=== PATIENT | male | born 1950 | race Caucasian/White ===

== ENCOUNTER → 2016-07-23 | Outpatient (CLI) | payer MEDICARE, OTHER | LOC: RAD 10:35 | PROVIDERS: ATTEND Internal Medicine Medical Oncology | DX: C16.9 Malignant neoplasm of stomach, unspecified (principal) | CPT/HCPCS: 78815; A9552 ==

== ENCOUNTER 2016-08-23 10:23 | Outpatient (CLI) | payer MEDICARE, OTHER ==
[~2016-08-23 10:23] MED LIST: ACETAMINOPHEN 325 MG TABLET PO PRN; DIPHENHYDRAMINE HCL 25 MG CAPSULE PO PRN; FUROSEMIDE INJ/PF 20 MG/2 ML SDV IV PRN; NORMAL SALINE 1000 ML 1,000 ML IV PRN
[2016-08-23 11:18] LABS: HEMATOCRIT 23.1 % (37.9-51.0); MEAN CORPUSCULAR HGB CONC 33.4 g/dL (32.0-36.0); RED BLOOD COUNT 2.09 10^6/uL (4.35-5.55); RED CELL DISTRIBUTION WIDTH 22.1 % (11.5-14.0); WHITE BLOOD COUNT 3.3 10^3/uL (4.0-10.5)
[2016-08-23 12:02] LABS: HEMOGLOBIN 7.7 g/dL (13.5-17.0); MEAN CORPUSCULAR VOLUME 111 fl (80-97)
[2016-08-23 20:45] VITALS: BP 129/55
[2016-08-23 22:00] LABS: HEMATOCRIT 26.2 % (37.9-51.0); HEMOGLOBIN 9.1 g/dL (13.5-17.0); HGB HCT DIFFERENCE 1.1; MEAN CORPUSCULAR HEMOGLOBIN 35.8 pg (27.0-33.4); MEAN CORPUSCULAR HGB CONC 34.6 g/dL (32.0-36.0); RED BLOOD COUNT 2.54 10^6/uL (4.35-5.55); RED CELL DISTRIBUTION WIDTH 24.9 % (11.5-14.0); WHITE BLOOD COUNT 3.3 10^3/uL (4.0-10.5)
[2016-08-23 22:08] LABS: MEAN CORPUSCULAR VOLUME 103 fl (80-97)
[2016-08-24 20:02] LABS: PATH REVIEW PATHOLOGIST REVIEWED
== END 2016-08-23 22:00 | disposition home or self-care (01) ==
LOC: II 10:23 → 2N 10:29 → 2S 10:32 → II 22:00
PROVIDERS: ATTEND Internal Medicine Medical Oncology
PROC: 30233N1 Transfusion of Nonautologous Red Blood Cells into Peripheral Vein, Percutaneous Approach (ICD-10-PCS; principal; 2016-08-23)
DX: D69.3 Immune thrombocytopenic purpura (principal)
CPT/HCPCS: 86900; 86901; 36415; 36430; 86850; 85027; 86920; P9016; A9270 ×2

== ENCOUNTER 2016-09-23 10:19 | Day surgery (SDC) | payer MEDICARE, OTHER ==
[2016-09-23 10:44] LABS: HEMOGLOBIN 8.4 g/dL (13.5-17.0); HGB HCT DIFFERENCE -0.8; MEAN CORPUSCULAR HEMOGLOBIN 31.7 pg (27.0-33.4); MEAN CORPUSCULAR HGB CONC 32.5 g/dL (32.0-36.0); MEAN CORPUSCULAR VOLUME 98 fl (80-97); RED BLOOD COUNT 2.66 10^6/uL (4.35-5.55); RED CELL DISTRIBUTION WIDTH 23.6 % (11.5-14.0); WHITE BLOOD COUNT 5.7 10^3/uL (4.0-10.5)
[2016-09-23 11:00] LABS: BLOOD UREA NITROGEN 23 mg/dL (7-20); CREATININE RESULT 0.73 mg/dL (0.52-1.25)
[2016-09-23] MEDS ORDERED: MIDAZOLAM 2 MG/2 ML INJ ONE (12:21)
[2016-09-23] MEDS ORDERED: FENTANYL CITRATE INJ/PF 100 MCG/2 ML AMPUL ONE (12:22)
--- NOTE | 2016-09-23 14:51 | RADIOLOGY REPORT (SQ) ---
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 TECHNIQUE: CT guided biopsy of the posterior right iliac crest bone marrow aspirate performed with c onscious sedation. CT Fluoroscopy Time: 1.[address] scanners at this facility use dose modulation, iterative reconstruction, and/or weight based d osing when appropriate to reduce radiation dose to as low as reasonably achievable (ALARA). [facility]: Dose Right [facility]: CareDose [facility]: Dose Right [facility]: Teradose 4D [facility]: [employer] RADIATION DOSE: 31 mGy. FINDINGS: The procedure was discussed with the patient and the patient agreed to the procedure. Prio r to the procedure, a time out was performed to verify the patient's identity and planned procedure. IV sedation was administered and physician direction by the registered nurse using 2 milligrams of Ve rsed and 100 micrograms of fentanyl. Physiologic monitoring was provided before, during, and after se dation. The total sedation time was 42 minutes. Documentation face to face time, the performing proceduralist, spent monitoring the patient: [address] scanning was performed to localize the percutaneous site for the biopsy approach. After sterile skin prep and local lidocaine for skin and deep tissue anesthesia, a 14 gauge bone biop sy needle was used to obtain 1 aspirate of bone marrow, and 2 cores of medullary space bone. Specime ns were given to Noa from the oncologist's office. Pathology is pending. There were no immediate complications. IMPRESSION: CT GUIDED BIOPSY OF THE RIGHT POSTERIOR ILIAC CREST BONE MARROW PERFORMED WITHOUT IMMEDI ATE COMPLICATION. PATHOLOGY PENDING. COMMENT: Quality ID 145: Final reports for procedures using fluoroscopy that document radiation exp osure indices, or exposure time and number of fluorographic images (if radiation exposure indices are not available) Patient medication list reviewed: Yes- Quality ID# [id number]:Eligible professional attests to documenting i n the medical record they obtained, updated, or reviewed the patient's current medications.. TECHNICAL DOCUMENTATION: JOB ID: [id number] Quality ID# [id number]: Final reports with documentation of one or more dose reduction techniques (e.g., Aut omated exposure control, adjustment of the mA and/or kV according to patient size, use of iterative r econstruction technique) 2010 [employer]- All Rights Reserved
--- NOTE | 2016-09-23 14:51 | RADIOLOGY REPORT (SQ) ---
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 TECHNIQUE: CT guided biopsy of the posterior right iliac crest bone marrow aspirate performed with c onscious sedation. CT Fluoroscopy Time: 1.[address] scanners at this facility use dose modulation, iterative reconstruction, and/or weight based d osing when appropriate to reduce radiation dose to as low as reasonably achievable (ALARA). [facility]: Dose Right [facility]: CareDose [facility]: Dose Right [facility]: Teradose 4D [facility]: [employer] RADIATION DOSE: 31 mGy. FINDINGS: The procedure was discussed with the patient and the patient agreed to the procedure. Prio r to the procedure, a time out was performed to verify the patient's identity and planned procedure. IV sedation was administered and physician direction by the registered nurse using 2 milligrams of Ve rsed and 100 micrograms of fentanyl. Physiologic monitoring was provided before, during, and after se dation. The total sedation time was 42 minutes. Documentation face to face time, the performing proceduralist, spent monitoring the patient: [address] scanning was performed to localize the percutaneous site for the biopsy approach. After sterile skin prep and local lidocaine for skin and deep tissue anesthesia, a 14 gauge bone biop sy needle was used to obtain 1 aspirate of bone marrow, and 2 cores of medullary space bone. Specime ns were given to Noa from the oncologist's office. Pathology is pending. There were no immediate complications. IMPRESSION: CT GUIDED BIOPSY OF THE RIGHT POSTERIOR ILIAC CREST BONE MARROW PERFORMED WITHOUT IMMEDI ATE COMPLICATION. PATHOLOGY PENDING. COMMENT: Quality ID 145: Final reports for procedures using fluoroscopy that document radiation exp osure indices, or exposure time and number of fluorographic images (if radiation exposure indices are not available) Patient medication list reviewed: Yes- Quality ID# [id number]:Eligible professional attests to documenting i n the medical record they obtained, updated, or reviewed the patient's current medications.. TECHNICAL DOCUMENTATION: JOB ID: [id number] Quality ID# [id number]: Final reports with documentation of one or more dose reduction techniques (e.g., Aut omated exposure control, adjustment of the mA and/or kV according to patient size, use of iterative r econstruction technique) [address] [employer]- All Rights Reserved
[2016-09-23 15:14] VITALS: BP 115/48
== END 2016-09-23 15:05 | disposition home or self-care (01) ==
LOC: RAD 10:19
PROVIDERS: ATTEND Internal Medicine Medical Oncology
PROC: 0QB23ZX Excision of Right Pelvic Bone, Percutaneous Approach, Diagnostic (ICD-10-PCS; principal; 2016-09-23)
DX: D69.3 Immune thrombocytopenic purpura (principal); D64.9 Anemia, unspecified
CPT/HCPCS: 36415; 84520; 82565; 85027; 85610; 77012; 20225; J2250; J3010

== ENCOUNTER 2016-10-18 10:33 | Outpatient (CLI) | payer MEDICARE, OTHER ==
[~2016-10-18 10:33] MED LIST changes: -NORMAL SALINE 1000 ML 1,000 ML IV PRN
[2016-10-18 11:06] LABS: HEMATOCRIT 23.6 % (37.9-51.0); HGB HCT DIFFERENCE -0.8; MEAN CORPUSCULAR HEMOGLOBIN 30.6 pg (27.0-33.4); MEAN CORPUSCULAR HGB CONC 32.2 g/dL (32.0-36.0); MEAN CORPUSCULAR VOLUME 95 fl (80-97); RED BLOOD COUNT 2.49 10^6/uL (4.35-5.55); RED CELL DISTRIBUTION WIDTH 20.2 % (11.5-14.0)
[2016-10-18 11:49] LABS: HEMOGLOBIN 7.6 g/dL (13.5-17.0); WHITE BLOOD COUNT 2.5 10^3/uL (4.0-10.5)
--- NOTE | 2016-10-18 18:35 | XCELERA REPORT ---
[address] [address] Upper Extremity Venous Evaluation Name: FABRICIO SCHMIDT Age: 66 yrs Gender: Male : 1950 Patient Status: Outpatient Patient Location: 2N\S\206\S\A Study Date: 10/18/2016 01:43 PM Procedure: Unilateral duplex scan of the right upper extremity veins was performed, including responses to compression and other maneuvers. Reason For Study: Swelling of right chest/port Ordering Physician: ANABEL GASPAR Performed By: Candy Avalos Right Side Venous Evaluation Port catheter present. Normal vessel filling wall to wall, compression and augmentation as well as Colour flow down to the forearm veins. Interpretation Summary Normal compression, patency, spontaneous and phasic flow of the right upper extremity veins. : ANABEL GASPAR > You Mathis
[2016-10-18 22:33] VITALS: BP 118/57
[2016-10-18 23:04] LABS: HEMOGLOBIN 9.2 g/dL (13.5-17.0); HGB HCT DIFFERENCE -0.4; MEAN CORPUSCULAR HEMOGLOBIN 30.8 pg (27.0-33.4); MEAN CORPUSCULAR HGB CONC 32.7 g/dL (32.0-36.0); MEAN CORPUSCULAR VOLUME 94 fl (80-97); RED BLOOD COUNT 2.97 10^6/uL (4.35-5.55); RED CELL DISTRIBUTION WIDTH 18.3 % (11.5-14.0); WHITE BLOOD COUNT 2.2 10^3/uL (4.0-10.5)
[2016-10-20 12:53] LABS: PATH REVIEW PATHOLOGIST REVIEWED
== END 2016-10-18 23:14 | disposition home or self-care (01) ==
LOC: II 10:33 → 2N 10:37 → II 23:14
PROVIDERS: ATTEND Internal Medicine Medical Oncology
PROC: 30233N1 Transfusion of Nonautologous Red Blood Cells into Peripheral Vein, Percutaneous Approach (ICD-10-PCS; principal; 2016-10-18)
PROC: 30233R1 Transfusion of Nonautologous Platelets into Peripheral Vein, Percutaneous Approach (ICD-10-PCS; 2016-10-18)
DX: C16.9 Malignant neoplasm of stomach, unspecified (principal)
CPT/HCPCS: 96374; 86900; 86901; 36415; 36430; 86850; 85027; 86920; 93971 ×2; P9016; P9035; J1940

== ENCOUNTER 2016-11-17 09:41 | Outpatient (CLI) | payer MEDICARE, OTHER ==
[2016-11-17] MEDS ORDERED: NORMAL SALINE 250 ML IV PRN (10:22)
[2016-11-17 12:09] LABS: HEMOGLOBIN 8.3 g/dL (13.5-17.0); HGB HCT DIFFERENCE -0.1; MEAN CORPUSCULAR HEMOGLOBIN 30.5 pg (27.0-33.4); MEAN CORPUSCULAR HGB CONC 33.4 g/dL (32.0-36.0); MEAN CORPUSCULAR VOLUME 91 fl (80-97); RED BLOOD COUNT 2.74 10^6/uL (4.35-5.55); RED CELL DISTRIBUTION WIDTH 16.7 % (11.5-14.0)
[2016-11-18 00:06] VITALS: BP 107/53
[2016-11-18 00:31] LABS: HEMATOCRIT 26.3 % (37.9-51.0); HGB HCT DIFFERENCE 0.7; MEAN CORPUSCULAR HEMOGLOBIN 30.7 pg (27.0-33.4); MEAN CORPUSCULAR HGB CONC 34.2 g/dL (32.0-36.0); MEAN CORPUSCULAR VOLUME 90 fl (80-97); RED BLOOD COUNT 2.93 10^6/uL (4.35-5.55); RED CELL DISTRIBUTION WIDTH 15.6 % (11.5-14.0)
[2016-11-18 10:04] LABS: PATH REVIEW PATHOLOGIST REVIEWED
== END 2016-11-18 00:16 | disposition home or self-care (01) ==
LOC: II 09:41 → 2N 09:45 → II 11-18 00:16
PROVIDERS: ATTEND Internal Medicine Medical Oncology
PROC: 30233R1 Transfusion of Nonautologous Platelets into Peripheral Vein, Percutaneous Approach (ICD-10-PCS; principal; 2016-11-17)
PROC: 30233N1 Transfusion of Nonautologous Red Blood Cells into Peripheral Vein, Percutaneous Approach (ICD-10-PCS; 2016-11-17)
DX: D69.3 Immune thrombocytopenic purpura (principal); D46.9 Myelodysplastic syndrome, unspecified; Z85.00 Personal history of malignant neoplasm of unspecified digestive organ
CPT/HCPCS: 86900; 86901; 36415; 36430; 86850; 85027; 86920; P9016; P9035; A9270 ×2; J1940